=== PATIENT | male | born 1985 | race Caucasian/White ===

== ENCOUNTER 2016-11-04 16:26 | Emergency (ER) | payer OTHER ==
[~2016-11-04] VITALS: Ht 172.7 cm; Wt 140.6 kg
[~2016-11-04 16:26] MED LIST: AMOXICILLIN500 M1 PO; INDOCIN SR75 MG PO; NORCO 325 MG-51 TAB PO
[2016-11-04 16:30] VITALS: BP 139/91
[2016-11-04] MEDS ORDERED: CLOTRIMAZOLE15 GM TOP (17:02)
--- NOTE | 2016-11-04 17:03 | ED GI/GU/ABDOMINAL COMPLAINT ---
History of Present Illness General Chief Complaint: Male Genitourinary Problems Stated Complaint: PENIS PAIN FOR 2-3 WEEKS (RED, BLEEDING) Source: patient Exam Limitations: no limitations Vital Signs & Intake/Output Vital Signs & Intake/Output Vital Signs Date Time Temp Pulse Resp B/P Pulse O2 O2 Flow FiO2 Ox Delivery Rate 11/04 1720 98 Room Air 11/04 1630 98.6 112 20 139/91 95 Room Air ED Intake and Output 11/05 0000 11/04 1200 Intake Total Output Total Balance Patient 310 lb Weight Allergies Coded Allergies: No Known Allergies (11/04/16) Reconcile Medications Acetaminophen/Hydrocodone Bi ([place] 325 MG-5 MG) 1 TAB TAB 1 TAB PO Q6H PRN PAIN Amoxicillin 500 MG TABLET 1 TAB PO TID INFECTION Clotrimazole 1 % CREAM..G. 1 DAMEON TOP QAMPM balinitis apply to affected area(s) Indomethacin (Indocin Sr) 75 MG CER 1 TAB PO BID PRN PAIN Oxycodone HCl/Acetaminophen (Percocet 5-325 MG Tablet) 5 MG-325 MG TABLET 1-2 TAB PO Q6P PRN PAIN Triage Note: TRIAGE: PT TO ER C/C PAIN TO "PENIS AREA" X 2 WEEKS, CONSTANT AND WORSENING SINCE ONSET. STATES "THE TIP OF IT IS REAL RED, ALMOST BLEEDING RED". DENIES URINARY DIFFICULTY. DENIES ANY DRAINAGE. Triage Nurses Notes Reviewed? yes Onset: Abrupt Duration: week(s): (2), constant, continues in ED Timing: recent history Location: penis Radiation: no radiation Activities at Onset: none No Modifying Factors: none HPI: 30-year-old male comes into emergency room with complaints of swelling to the tip of his penis and redness has been going on for the past 2 weeks getting progressively worse. Denies any urethral discharge. Denies any vomiting. Denies any testicular pain or pain with urination. Denies any other associated symptoms. (EVELYN ACEVES) Past History Travel History Traveled to [place] past 21 day No Medical History Any Pertinent Medical History? see below for history Neurological: NONE EENT: NONE Cardiovascular: NONE Respiratory: NONE Gastrointestinal: NONE Hepatic: NONE Renal: NONE Musculoskeletal: NONE Psychiatric: NONE Endocrine: NONE Blood Disorders: NONE Cancer(s): NONE ENTERTAINMENT MANAGER/Reproductive: NONE Surgical History Surgical History: non-contributory Psychosocial History What is your primary language Kazakh Tobacco Use: Current Daily Use Daily Tobacco Use Amount/Type: =< 4 Cigarettes daily ETOH Use: denies use Illicit Drug Use: denies illicit drug use Family History Hx Contributory? No (EVELYN ACEVES) Review of Systems Review of Systems Constitutional: Reports: no symptoms. EENTM: Reports: no symptoms. Respiratory: Reports: no symptoms. Cardiovascular: Reports: no symptoms. GI: Reports: no symptoms. Genitourinary: Reports: see HPI. Musculoskeletal: Reports: no symptoms. Skin: Reports: no symptoms. Neurological/Psychological: Reports: no symptoms. Hematologic/Endocrine: Reports: no symptoms. Immunologic/Allergic: Reports: no symptoms. All Other Systems: Reviewed and Negative (EVELYN ACEVES) Physical Exam Physical Exam General Appearance: well developed/nourished, no apparent distress, alert Head: atraumatic, normal appearance Eyes: Bilateral: normal appearance. Ears, Nose, Throat, Mouth: hearing grossly normal, moist mucous membrane Neck: normal inspection Gastrointestinal: normal bowel sounds, soft Male Genitals: beefy erythema, swelling to glans penis, no discharge, no testicular pain Back: normal inspection Extremities: normal range of motion Neurologic/Psych: awake, alert, oriented x 3, normal gait, normal mood/affect Skin: intact, normal color Core Measures ACS in differential dx? No Severe Sepsis Present: No Septic Shock Present: No (EVELYN ACEVES) Progress Differential Diagnosis: STD, testicular torsion, ureterolithiasis, urinary retention, urethritis, UTI/pyelo, balanitis Plan of Care: Current Medications Sig/Shannon Start time Last Medication Dose Stop Time Status Admin Fluconazole 150 MG ONCE ONE 11/04 1714 AC (Diflucan) 11/04 1715 Initial ED EKG: none Comments: 11/04/2016 8:00:07 PM Patient given dose of fluconazole here. Patient given topical clotrimazole cream to go home with. Patient referred to urology. Patient clinically looks well otherwise. No testicular pain. No concern for testicular torsion. (EVELYN ACEVES) Departure Departure Disposition: HOME OR SELF CARE Condition: Stable Clinical Impression Primary Impression: Balanitis Referrals: RENZO MONTEZ,ISAIAH MEHTA MD,YAMILA (PCP/Family) Additional Instructions: Use clotrimazole cream as prescribed. Follow-up with urologist provided. Return to the emergency room if any concerns worsening symptoms. Take Percocet for pain. Please go over all results of today's visit with your primary care doctor. Contact your primary care doctor to let them know you were here in the emergency room. There may be nonspecific findings which may not be related to your visit today here in the emergency room but may require further evaluation and chronic monitoring by your primary care doctor. If you had a laceration today the chance of foreign body always remains. You should follow-up with your primary care doctor for recheck in 3-5 days for a wound check. If you had an x-ray done there is a chance that a fracture could have been missed on initial read and you should follow-up with your primary care doctor for repeat x-rays if symptoms persist. If your blood pressure was elevated here in the emergency room please have rechecked by her primary care doctor within the next 48 hours by your primary care doctor. If you were prescribed a narcotic here in the emergency room or any type of controlled substances you're not allowed to drive while taking this medication or operate any type of heavy machinery. Narcotics can make you feel lightheaded dizziness nausea and can cause constipation. You may need to pick up driver a stool softener. Thank you for choosing [facility] emergency room. Please return to the emergency room immediately if you have any other concerns worsening of symptoms. Departure Forms: Customer Survey General Discharge Information Prescriptions: Current Visit Scripts Clotrimazole 1 DAMEON TOP QAMPM #45 GM apply to affected area(s) Oxycodone HCl/Acetaminophen (Percocet 5-325 MG Tablet) 1-2 TAB PO Q6P PRN PAIN #15 TAB (EVELYN ACEVES) PA/FUNDER Co-Sign Statement Statement: ED Attending supervision documentation- [] I saw and evaluated the patient. I have also reviewed all the pertinent lab results and diagnostic results. I agree with the findings and the plan of care as documented in the PA's/FUNDER's documentation. [X] I have reviewed the ED Record and agree with the PA's/FUNDER's documentation. [] Additions or exceptions (if any) to the PAs/FUNDER's note and plan are summarized below: [] (FOUZIA MONTEZ,DIRK Rivera)
[2016-11-04] MEDS ORDERED: PERCOCET 5-3251 EACH PO (17:11)
== END 2016-11-04 17:22 ==
LOC: ERH 16:26
DX: N48.1 Balanitis (principal)